=== PATIENT | female | born 1980 | race Two or more races ===

== ENCOUNTER 2023-08-27 18:02 | Inpatient (IN) | payer OTHER ==
[2023-08-27 19:00] VITALS: BMI 36.4
[2023-08-27] MEDS ORDERED: POLYETHYLENE GLYCOL (HEALTHYLAX) 3350 17 GM PACKET PO PRN (21:58)
[2023-08-27] MEDS ORDERED: guaiFENesin 600 MG TABLET.ER (FP) PO PRN (21:58)
[2023-08-27] MEDS ORDERED: ONDANSETRON *ODT* 4 MG TABLET SL PRN (21:58)
[2023-08-27] MEDS ORDERED: NALOXONE HCL (KLOXXADO) 8 MG SPRAY NS PRN (21:58)
[2023-08-27] MEDS ORDERED: LOPERAMIDE HCL 2 MG CAPSULE PO PRN (21:58)
[2023-08-27] MEDS ORDERED: ACETAMINOPHEN 325 MG TABLET (FP) PO PRN (21:58)
[2023-08-27] MEDS ORDERED: BENZONATATE 200 MG CAPSULE PO PRN (21:58)
[2023-08-27] MEDS ORDERED: BENZOCAINE/MENTHOL (CHLORASEPTIC ) LOZENGE MM PRN (21:58)
[2023-08-27] MEDS ORDERED: IBUPROFEN 400 MG TABLET (FP) PO PRN (21:58)
[2023-08-27] MEDS ORDERED: MAGNESIUM HYDROX 2400MG/30ML ORAL SUSPENSION 30 ML CUP PO PRN (21:58)
[2023-08-27] MEDS ORDERED: IBUPROFEN 600 MG TABLET (FP) PO PRN (21:58)
[2023-08-27] MEDS ORDERED: NALOXONE HCL 0.4 MG/ML VIAL IM PRN (21:58)
[2023-08-27] MEDS ORDERED: BISMUTH SUBSALICYLATE 524 MG/30 ML PO PRN (21:58)
[2023-08-27] MEDS ORDERED: MAG HYDROX/AL HYDROX/SIMETH 30 ML UNIT-DOSE CUP PO PRN (21:58)
[2023-08-27] MEDS ORDERED: DICYCLOMINE HCL 10 MG CAPSULE PO PRN (21:58)
[2023-08-27] MEDS: METHOCARBAMOL 500 MG TABLET PO PRN (23:06)
[2023-08-27] MEDS: MELATONIN 5 MG TABLETS PO SCH (23:06)
[2023-08-27] MEDS: hydrOXYzine PAMOATE 25 MG CAPSULE (FP) PO PRN (23:06)
[2023-08-27] MEDS: THIAMINE HCL 100 MG TABLET (FP) PO SCH (23:10)
[2023-08-28] MEDS: PRENATAL VITAMINS W/ FOLIC ACID TABLET (FP) PO SCH (09:42)
[2023-08-28] MEDS: NICOTINE 14 MG/24 HOURS TOPICAL PATCH TD SCH (09:42)
[2023-08-28] MEDS: diazePAM 5 MG TABLET PO SCH (13:10)
[2023-08-28] MEDS: NICOTINE POLACRILEX 2 MG GUM BUC PRN (13:11)
[2023-08-28] MEDS: diazePAM 5 MG TABLET PO PRN (18:13)
[2023-08-28 20:49] VITALS: RESP 17; TEMP 97.7
[2023-08-29] MEDS: diazePAM 5 MG TABLET PO SCH (05:51)
[2023-08-29 07:18] VITALS: BP 141/87; PULSE 73
[2023-08-30] MEDS ORDERED: diazePAM 5 MG TABLET PO ONE (06:00)
== END 2023-08-29 07:30 | disposition home or self-care (01) | DRG 897 ==
LOC: EDBD 18:02 → YASAS 18:02 → Y6N 21:43
PROVIDERS: ADMIT Allergy & Immunology; ATTEND Surgery
PROC: HZ2ZZZZ Detoxification Services for Substance Abuse Treatment (ICD-10-PCS; principal; 2023-08-27)
DX: F10.230 Alcohol dependence with withdrawal, uncomplicated (principal); H46.9 Unspecified optic neuritis; Z59.00 Homelessness unspecified; F17.210 Nicotine dependence, cigarettes, uncomplicated; H40.9 Unspecified glaucoma; D86.9 Sarcoidosis, unspecified; Z28.310 Unvaccinated for COVID-19; Z28.9 Immunization not carried out for unspecified reason; Z56.0 Unemployment, unspecified
CPT/HCPCS: 80307; 81025; 93005; 93010